=== PATIENT | male | born 1955 ===

== ENCOUNTER 2024-02-01 05:41 | Day surgery (SDC) | payer MEDICARE ==
[~2024-02-01] VITALS: Ht 182.9 cm; Wt 92.3 kg
[2024-02-01] VITALS (8 sets, daily range): BP systolic 125–157; BP diastolic 72–99
[2024-02-01] MEDS ORDERED: Lactated Ringer's 1,000 ML IV SCH (06:25)
[2024-02-01] MEDS ORDERED: CeFAZolin Sodium 2,000 MG in NS 100 ML IV SCH (06:25)
[2024-02-01] MEDS ORDERED: propofoL 20 ML IV ONE (06:58)
[2024-02-01] MEDS ORDERED: Rocuronium Bromide 10 MG/ML 5ML Injection IV ONE ×2 (06:59→07:57)
[2024-02-01] MEDS ORDERED: Ondansetron HCl 2 MG / ML 2ML Vial ONE (06:59)
[2024-02-01] MEDS ORDERED: Dexamethasone Sod Phos 10 MG/ML 1ML VIAL ONE (06:59)
[2024-02-01] MEDS ORDERED: FentaNYL Citrate 50 MCG/ML 2 ML Injection ONE (06:59)
[2024-02-01] MEDS ORDERED: Sugammadex Sodium 200 MG/2ML SDV (100 MG/ML) ONE (06:59)
[2024-02-01] MEDS ORDERED: Lidocaine HCl 2% 20 ML MDV ONE (06:59)
[2024-02-01] MEDS ORDERED: Bupivacaine 0.5% Inj 10 ML Vial ONE (07:00)
[2024-02-01] MEDS ORDERED: Atropine Sulfate 0.4 MG/1 ML Vial ONE (07:57)
[2024-02-01] MEDS ORDERED: ePHEDrine Sulfate 50 MG/ML 1ML Injection ONE (07:57)
[2024-02-01] MEDS ORDERED: HYDROcodone 5-APAP 325 TAB PO PRN (09:35)
--- NOTE | 2024-02-01 10:20 | NUR ---
Discharge instructions reviewed with patient. Patient verbalizes understanding. Copy given to patient to take home. Dressing X3 c/d/i. Prescription placed in discharge folder. Patient States Post-Procedure ride home has been arranged. Discharged via wheelchair to private car for ride home.
== END 2024-02-01 10:20 | disposition home or self-care (01) ==
LOC: ORSCMMR 05:41 → ORD 10:30 → ORSCMMR 10:30
PROVIDERS: Surgery
PROC: 8E0W4CZ Robotic Assisted Procedure of Trunk Region, Percutaneous Endoscopic Approach (ICD-10-PCS; principal; 2024-02-01 07:30)
PROC: 0YU54JZ Supplement Right Inguinal Region with Synthetic Substitute, Percutaneous Endoscopic Approach (ICD-10-PCS; principal; 2024-02-01 07:30)
DX: K40.90 Unilateral inguinal hernia, without obstruction or gangrene, not specified as recurrent (principal); Z87.891 Personal history of nicotine dependence; G47.33 Obstructive sleep apnea (adult) (pediatric)
CPT/HCPCS: C1781; J0461; J0690; J1100; J2405; J2704; J3010; J7120